=== PATIENT | male | born 1995 | race Two or more races ===

== ENCOUNTER 2020-02-15 13:29 | Emergency (ER) | payer BC, SELFPAY ==
[2020-02-15 14:16] VITALS: BP 178/85; PULSE 103; RESP 16; TEMP 36.7; O2SAT 97; BMI 45.1
--- NOTE | 2020-02-15 14:44 | ED.URI ---
HPI - URI/Sore Throat General Chief Complaint: Upper Respiratory Symptoms Stated Complaint: sore throat Time Seen by Provider: 02/15/20 14:44 Source: patient Mode of arrival: ambulatory Limitations: no limitations History of Present Illness HPI Narrative: 24-year-old male presenting to the ED with complaints of a sore throat for approximately 3 weeks worse today. Reports he was recently treated for bronchitis approximately 3 weeks ago with a Z-Nasir and was still having a sore throat therefore they told him to take antihistamines for congestion although he has not had any relief and today he woke up with a swollen uvula and spots to his tonsils therefore came here for further evaluation and treatment. Reports he was negative for COVID 2 weeks ago and does not want another repeat COVID test at this time. Denies any other symptoms complaints or concerns at this time. Related Data Allergies Allergy/AdvReac Type Severity Reaction Status Date / Time No Known Allergies Allergy Unverified 01/12/20 16:14 Review of Systems Review of Systems: Constitutional : No Fever, No Chills, No fatigue, No Malaise ENT/Mouth : No runny nose Eyes: No Discharge Cardiovascular : No Chest Pain, No SOB Respiratory : No Cough, No Sputum, No Wheezing, No Smoke Exposure, No Dyspnea Gastrointestinal : No Nausea, No Vomiting, No Diarrhea Genitourinary : No irregular bleeding, No Dysuria, No Urinary Frequency, No Hematuria, No Urinary Incontinence, No Urgency, No Flank Pain, Musculoskeletal : No Myalgia Skin : No rash Neuro : No Headache Yes all other systems are reviewed and are negative PMFSH Past Medical History Attestation statement: The following information was validated with the patient. Medical History Asthma Hypertension Migraine Surgical History H/O arthroscopy of left knee Social History Social History Alcohol intake: never Smoking Status: Never smoker Use of substances other than those prescribed or required for medical reasons: No Advance Directives: No Advance Directives Information Provided: No Physical Exam Vital Signs: Vital Signs: Vital Signs Temp Pulse Resp BP Pulse Ox 02/15/20 14:16 98.1 F 103 H 16 178/85 H 97 Body Mass Index 45.1 vital signs have been reviewed as normal and appeared to be correct. Blood pressure normal. Heart rate normal. Respiration rate normal. Temperature normal. Oxygen saturation normal. Appearance: Alert. Oriented X3. No acute distress. Head: Normal external exam. Normocephalic. Atraumatic. No Lopez signs noted. No raccoon eyes noted Eyes: PERRLA. EOMI. Conjunctiva and sclera normal. Eyelids normal. ENT: EAC normal. TM's Normal. Posterior oropharynx with mild erythema. Tonsils noted to be mild be erythematous with exudate noted. Uvula midline Although with mild swelling. Moist mucous membranes. No trismus noted. No drooling noted. No muffled voice noted. Neck: Normal inspection. Neck supple. FROM. No adenopathy. Thyroid Normal. No meningeal signs. No neck mass noted. CVS: Normal heart rate and rhythm. Heart sound normal. No murmurs noted. Pulses normal throughout. Respiratory: No respiratory distress. Painless inspiration. Breath sounds normal. No wheezes/rales/rhonchi noted. Chest nontender. No accessory muscle usage noted or decreased air movement noted. Abdomen: Soft and nontender. Bowel sounds normal in all 4 quadrants. No distention noted. No organomegaly noted. No visible injury noted. Back: No CVA tenderness. Full range of motion noted. Skin: Skin warm and dry. Normal skin color. Normal skin turgor. No rashes/lesions/lacerations noted. Extremities: No lower extremity edema. Extremities exhibit normal range of motion. Extremities nontender. Neuro: Oriented X 3. No motor deficit. No sensory deficit. Reflexes normal. Course Course Course Narrative: 24-year-old male presenting to the ED with complaints of a sore throat for approximately 3 weeks worse today. Reports he was recently treated for bronchitis approximately 3 weeks ago with a Z-Nasir and was still having a sore throat therefore they told him to take antihistamines for congestion although he has not had any relief and today he woke up with a swollen uvula and spots to his tonsils therefore came here for further evaluation and treatment. Reports he was negative for COVID 2 weeks ago and does not want another repeat COVID test at this time. Denies any other symptoms complaints or concerns at this time. - rapid strep and treat for bacterial pharyngitis and instructions to return if any new or worsening symptoms to follow-up with primary care provider. Patient understands agrees with this plan.
== END 2020-02-15 15:33 | disposition home or self-care (01) ==
PROVIDERS: Emergency Provider Emergency Medicine; PCP Nurse Practitioner Family
DX: J02.9 Acute pharyngitis, unspecified (principal)
CPT/HCPCS: 87071; 87880; 99283

== ENCOUNTER → 2020-08-09 13:47 | Outpatient (BNVA) | payer OTHER, SELFPAY | PROVIDERS: Visit Provider Physician Assistant Medical | DX: S63.501A Unspecified sprain of right wrist, initial encounter (principal); X58.XXXA Exposure to other specified factors, initial encounter; M65.4 Radial styloid tenosynovitis [de Quervain] | CPT/HCPCS: 29260; 99202 ==

== ENCOUNTER → 2020-08-16 13:39 | Outpatient (BNVA) | payer OTHER, SELFPAY | PROVIDERS: Visit Provider Physician Assistant Medical | DX: S63.501A Unspecified sprain of right wrist, initial encounter (principal); X58.XXXA Exposure to other specified factors, initial encounter; M65.4 Radial styloid tenosynovitis [de Quervain] | CPT/HCPCS: 29125; 73110; 99214 ==

== ENCOUNTER → 2020-08-24 13:22 | Outpatient (BNVA) | payer OTHER, SELFPAY | PROVIDERS: PCP Nurse Practitioner Family; Visit Provider Physician Assistant Medical | DX: S63.501A Unspecified sprain of right wrist, initial encounter (principal); X58.XXXA Exposure to other specified factors, initial encounter | CPT/HCPCS: 99213 ==

== ENCOUNTER → 2020-08-28 12:54 | Outpatient (BNVA) | payer OTHER, SELFPAY | PROVIDERS: PCP Nurse Practitioner Family; Visit Provider Physician Assistant | DX: S63.501D Unspecified sprain of right wrist, subsequent encounter (principal); X58.XXXD Exposure to other specified factors, subsequent encounter | CPT/HCPCS: 29125; 99214 ==

== ENCOUNTER → 2020-09-07 13:49 | Outpatient (BNVA) | payer OTHER, SELFPAY | PROVIDERS: PCP Nurse Practitioner Family; Visit Provider Physician Assistant Medical | DX: S63.501D Unspecified sprain of right wrist, subsequent encounter (principal); X58.XXXD Exposure to other specified factors, subsequent encounter | CPT/HCPCS: 99213 ==

== ENCOUNTER → 2020-09-28 14:12 | Outpatient (BNVA) | payer OTHER, SELFPAY | PROVIDERS: PCP Nurse Practitioner Family; Visit Provider Physician Assistant Medical | DX: S63.501D Unspecified sprain of right wrist, subsequent encounter (principal); X58.XXXD Exposure to other specified factors, subsequent encounter | CPT/HCPCS: 99213 ==

== ENCOUNTER → 2020-10-03 14:42 | Outpatient (BNVA) | payer OTHER, SELFPAY | PROVIDERS: PCP Nurse Practitioner Family; Visit Provider Physician Assistant | DX: S66.911A Strain of unspecified muscle, fascia and tendon at wrist and hand level, right hand, initial encounter (principal) | CPT/HCPCS: 99202 ==

== ENCOUNTER 2020-10-24 15:00 | Outpatient (RCR) | payer OTHER, SELFPAY | END 2020-11-30 10:01 | disposition other institution (70) | LOC: HO.OT 15:00 | PROVIDERS: PCP Nurse Practitioner Family; Visit Provider Physician Assistant Medical | DX: S69.91XD Unspecified injury of right wrist, hand and finger(s), subsequent encounter (principal) | CPT/HCPCS: 29125; 97033; 97110; 97165; 97760 ==

== ENCOUNTER → 2020-11-14 13:45 | Outpatient (BNVA) | payer OTHER, SELFPAY | PROVIDERS: PCP Nurse Practitioner Family; Visit Provider Physician Assistant | DX: S66.911A Strain of unspecified muscle, fascia and tendon at wrist and hand level, right hand, initial encounter (principal); X58.XXXA Exposure to other specified factors, initial encounter; Y93.9 Activity, unspecified; Y92.9 Unspecified place or not applicable; Y99.8 Other external cause status; J45.909 Unspecified asthma, uncomplicated; I10 Essential (primary) hypertension | CPT/HCPCS: 99212 ==

== ENCOUNTER → 2021-06-03 10:44 | Outpatient (BNVA) | payer OTHER, SELFPAY | PROVIDERS: PCP Nurse Practitioner Family; Visit Provider Physician Assistant Medical | DX: S30.0XXA Contusion of lower back and pelvis, initial encounter (principal); W00.0XXA Fall on same level due to ice and snow, initial encounter | CPT/HCPCS: 99203 ==

== ENCOUNTER → 2021-07-08 14:20 | Outpatient (BNVA) | payer OTHER, SELFPAY | PROVIDERS: PCP Nurse Practitioner Family; Visit Provider Internal Medicine | DX: Z13.89 Encounter for screening for other disorder (principal) ==

== ENCOUNTER 2021-07-08 15:18 | Emergency (ER) | payer OTHER, SELFPAY ==
--- NOTE | ~2021-07-08 | CT_ITS ---
EXAMINATION: CT FACIAL BONES WITHOUT CONTRAST CLINICAL INFORMATION: Left eye pain. COMPARISON: No similar priors. TECHNIQUE: Contiguous axial imaging was performed of the maxillofacial structures without intravenous contrast. Coronal and sagittal reformats were obtained. This CT examination was performed using dose optimization techniques as appropriate, variously including the following: *Automated exposure control *Adjustment of mA and/or kV according to patient size (this includes techniques or standardized protocols for targeted exams where dose is matched to indication/reason for exam; i.e. extremities or head) *Use of iterative reconstruction technique DLP: 532 mGy-cm FINDINGS: There is no acute maxillofacial fracture. The pterygoid plates are intact. The zygomatic arches are intact. The lamina papyracea are intact. The orbital rims are intact. There is a mucous retention cyst in the right maxillary sinus with mild mucosal thickening of the paranasal sinuses elsewhere. No air-fluid levels are seen. There is no deviation of the nasal septum. The ostiomeatal complexes are clear. The ethmoid roofs are symmetric. No maxillary periapical disease is seen. The mastoid air cells and visualized middle ear cavities are well-aerated. The orbits are normal. The TMJs are unremarkable. The imaged portions of the brain demonstrate no acute abnormality. CT/CT facial bones wo con IMPRESSION: No acute intracranial process or discrete facial bone fracture.
[2021-07-08 16:55] VITALS: BP 149/80; PULSE 104; RESP 18; TEMP 36.8; O2SAT 98; BMI 51.6
[2021-07-08] MEDS: Tetracaine HCl/PF 0.5% Oph Sol 4 ML DROPS 3 DROP EYE-BOTH (17:20)
[2021-07-08] MEDS: Fluorescein Sodium STRIP 1 STRIP EYE-LEFT (17:21)
[2021-07-08] MEDS: Fluorescein Sodium STRIP 1 STRIP EYE-RIGHT (17:21)
[2021-07-08] MEDS: oxyCODONE HCl Immed Release 5 MG TABLET PO (17:46)
--- NOTE | 2021-07-08 18:52 | ED_ITS ---
HPI - General Adult General Chief complaint: Eye Problems Stated complaint: blunt trauma to left eye work related Time Seen by Provider: 07/08/21 17:07 Source: patient Mode of arrival: ambulatory Limitations: no limitations History of Present Illness HPI narrative: patient presents to ED for left eye pain. 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 Patient states due to his strength the object pushed back up and hit him in his left eye around 10:00. Patient kept on working but then started having worsening eye pain so came to the ED to be evaluated. Patient was referred from work connection. Patient denies any loss of consciousness or actual frontal or scalp injury. Patient states clearly being hit in left eye. patient denies any loss of consciousness Related Data Home Medications Medication Instructions Recorded Confirmed acetaminophen 500 mg tablet 1,000 mg PO Q4H PRN 10/03/20 amitriptyline 25 mg tablet 50 mg PO BEDTIME 10/03/20 chlorthalidone 25 mg tablet 25 mg PO DAILY 10/03/20 ibuprofen 800 mg tablet 800 mg PO TID PRN 10/03/20 verapamil 180 mg 24 hr 180 mg PO DAILY 10/03/20 capsule,extended release Previous Rx's Medication Instructions Recorded Decadron 6 mg tablet 12 mg PO ONCE #2 tab NS 02/15/20 (dexamethasone) acetaminophen 300 mg-codeine 30 mg 1 tab PO Q8H PRN #10 tab 02/15/20 tablet amoxicillin 875 mg-potassium 1 tab PO BID 10 Days #20 tab 02/15/20 clavulanate 125 mg tablet (Augmentin) erythromycin 5 mg/gram (0.5 %) eye 0.5 inch OPHTHALMIC (EYE) QID 7 07/08/21 ointment Days #3.5 g oxycodone-acetaminophen 5 mg-325 1 tab PO TID PRN 3 Days #9 tab 07/08/21 mg tablet (Percocet) Allergies Allergy/AdvReac Type Severity Reaction Status Date / Time No Known Allergies Allergy Unverified 10/03/20 14:51 Review of Systems Review of Systems: left eye pain Yes all other systems are reviewed and are negative PMFSH Past Medical History Medical History Asthma Hypertension Migraine Surgical History H/O arthroscopy of left knee Social History Social History Alcohol intake: never Patient Tobacco Use Status: Never used Tobacco Advance Directives: No Advance Directives Information Provided: No Current occupational status: employed 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 Physical Exam ED Vital Signs: Vital Signs - 24 hr 07/08/21 16:55 Temperature 98.3 F Pulse Rate 104 H Respiratory Rate 18 Blood Pressure 149/80 H Pulse Oximetry 98 BMI result Body Mass Index 51.6 Const General: cooperative, healthy appearing, comfortable, no acute distress, well developed, alert, awake and Physically active Orientation/consciousness: oriented to time and patient oriented x3 HENMT Head: Yes normal to inspection, Yes No palpable skull fracture present, Yes normocephalic, Yes atraumatic, No abrasion, No Acrocyanosis present, No Lopez's sign, No contusion, No cranial bruits, No hematoma, No laceration, No occipital foramen tenderness, No palpable skull fracture, No raccoon eyes, No scalp lesion, No scalp tenderness, No Temporal artery tenderness present and No periorbital ecchymosis Head images: 1. tenderness on palpation. Negative for ecchymosis or crepitus. Rest of HEENT normal Ears: hearing grossly normal bilaterally, external ears normal, TM's normal bilaterally, EAC's normal, mastoids normal and no periauricular adenopathy Eyes Other: Left eye: positive for conjunctival/scleral erythema. Positive for slight photophobia. Negative for any foreign body. Physical exam indicates corneal abrasion, and mild 3* oclock and 6 o'clock position conjunctival uptake. Visual acuity 20/40. Negative for subconjuctival hemorrhage or hyphema. right eye; normal. Negative for corneal abrasion. Visual acuity 20/20 General: appearance normal, both eyes and all related structures Neck Neck: Yes normal visual inspection, Yes full ROM, Yes no lymphadenopathy, Yes no meningeal signs, Yes trachea midline, Yes supple, No anterior neck swelling and No tender Chest Chest palpation & inspection: normal inspection of the chest and normal palpation of entire chest wall Resp Effort & Inspection: normal respiratory effort and able to speak in complete sentences Auscultation: clear to auscultation bilaterally Cardio Jugular venous distension: no JVD Heart sounds: S1 normal heart sound present and S2 normal heart sound present GI Inspection: Yes normal to inspection and No abdominal wall ecchymosis Palpation (GI): Soft to palpation, not firm, nontender, no guarding and not rigid General: No CVA tenderness and Yes no CVA tenderness Back/Spine/Pelvis Back: no CVA tenderness, No CVA tenderness and No back tenderness Skin General skin exam: no rashes or lesions noted and elasticity normal Neuro General: oriented to time, patient oriented x3, gait normal, tone normal and no meningeal signs Cranial nerves: Yes CN's II-XII intact bilaterally Extrem General: Yes normal to inspection and Yes full ROM Psych Appearance: grossly normal, well kempt and not disheveled Course Course Course Narrative: tetracaine and fluorescein dye used for eye exam Reevaluation(s) Reevaluation #1: eye exam shows corneal abrasion due to slight orbital bone tenderness and mild conjunctival uptake will send for CT scan make sure there is no fracture or globe rupture. Patient states he feels better after receiving Percocet and tetracaine in the eye. Patient not talk on the phone being pleasant and no longer have photophobia. Discharge papers prepared and cased signed out to SHAR Rashid. Patient states up-to-date with tetanus Time: 19:04 Medical Decision Making MDM Narrative Medical decision making narrative: Corneal abrasion Discharge Plan Discharge Clinical Impression: Corneal abrasion Patient Disposition: Still a Patient Instructions: Corneal Abrasion (ED) Additional Instructions: return to the ED immediately for any worsening eye pain, watery discharge, blood in the eye, change in vision, loss of vision, headache, dizziness, nausea, vomiting, or any other concerning symptoms. Prescriptions: New erythromycin 5 mg/gram (0.5 %) ointment 0.5 inch ophthalmic (eye) QID 7 Days Qty: 3.5 0RF Rx Instructions: left eye oxycodone-acetaminophen [Percocet] 5-325 mg tablet 1 tab PO TID PRN (Reason: pain) 3 Days Qty: 9 0RF Rx Instructions: side effect is drowsiness. Do not take at work or while driving. No Action amoxicillin-pot clavulanate [Augmentin] 875-125 mg tablet 1 tab PO BID 10 Days Qty: 20 0RF dexamethasone [Decadron] 6 mg tablet 12 mg PO ONCE Qty: 2 0RF acetaminophen-codeine 300-30 mg tablet 1 tab PO Q8H PRN (Reason: pain) Qty: 10 0RF verapamil 180 mg capsule,ext rel. pellets 24 hr 180 mg PO DAILY 0RF amitriptyline 25 mg tablet 50 mg PO BEDTIME 0RF chlorthalidone 25 mg tablet 25 mg PO DAILY 0RF acetaminophen 500 mg tablet 1,000 mg PO Q4H PRN (Reason: pain) 0RF ibuprofen 800 mg tablet 800 mg PO TID PRN (Reason: moderate pain) 0RF Referrals: Ibrahima Thomas [Physician] - 2 days ( Left corneal abrasion) Print Language: Nigerien
== END 2021-07-08 19:30 | disposition home or self-care (01) ==
PROVIDERS: Emergency Provider Emergency Medicine
DX: S05.02XA Injury of conjunctiva and corneal abrasion without foreign body, left eye, initial encounter (principal); W22.8XXA Striking against or struck by other objects, initial encounter; Y93.89 Activity, other specified; Y92.89 Other specified places as the place of occurrence of the external cause; Y99.0 Civilian activity done for income or pay
CPT/HCPCS: 70486; 99284

== ENCOUNTER → 2021-07-10 09:11 | Outpatient (BNVA) | payer OTHER, SELFPAY | PROVIDERS: Visit Provider Physician Assistant Medical | DX: S05.02XA Injury of conjunctiva and corneal abrasion without foreign body, left eye, initial encounter (principal); S06.9X0A Unspecified intracranial injury without loss of consciousness, initial encounter; W22.8XXA Striking against or struck by other objects, initial encounter; G43.909 Migraine, unspecified, not intractable, without status migrainosus | CPT/HCPCS: 99203 ==

== ENCOUNTER → 2021-07-12 14:11 | Outpatient (BNVA) | payer OTHER, SELFPAY | PROVIDERS: Visit Provider Physician Assistant | DX: S05.02XA Injury of conjunctiva and corneal abrasion without foreign body, left eye, initial encounter (principal); S06.9X0A Unspecified intracranial injury without loss of consciousness, initial encounter; W22.8XXA Striking against or struck by other objects, initial encounter | CPT/HCPCS: 99213 ==

== ENCOUNTER → 2022-03-04 09:26 | Outpatient (BNVA) | payer OTHER, SELFPAY | PROVIDERS: Visit Provider Internal Medicine | DX: S66.911A Strain of unspecified muscle, fascia and tendon at wrist and hand level, right hand, initial encounter (principal); X50.0XXA Overexertion from strenuous movement or load, initial encounter | CPT/HCPCS: 73110; 99203 ==

== ENCOUNTER → 2022-03-11 08:47 | Outpatient (BNVA) | payer OTHER, SELFPAY | PROVIDERS: Visit Provider Physician Assistant Medical | DX: S66.911A Strain of unspecified muscle, fascia and tendon at wrist and hand level, right hand, initial encounter (principal); X50.0XXA Overexertion from strenuous movement or load, initial encounter; M65.4 Radial styloid tenosynovitis [de Quervain] | CPT/HCPCS: 99213 ==

== ENCOUNTER → 2022-07-23 09:57 | Outpatient (BNVA) | payer OTHER, SELFPAY | PROVIDERS: Visit Provider Physician Assistant Medical | DX: S67.196A Crushing injury of right little finger, initial encounter (principal); W23.1XXA Caught, crushed, jammed, or pinched between stationary objects, initial encounter | CPT/HCPCS: 73130; 99203 ==

== ENCOUNTER → 2022-07-28 13:15 | Outpatient (BNVA) | payer OTHER, SELFPAY | PROVIDERS: Visit Provider Physician Assistant Medical | DX: S67.196D Crushing injury of right little finger, subsequent encounter (principal); W23.1XXD Caught, crushed, jammed, or pinched between stationary objects, subsequent encounter | CPT/HCPCS: 29130; 99213 ==

== ENCOUNTER → 2022-08-04 13:29 | Outpatient (BNVA) | payer OTHER, SELFPAY | PROVIDERS: Visit Provider Physician Assistant Medical | DX: S67.196D Crushing injury of right little finger, subsequent encounter (principal); W23.1XXD Caught, crushed, jammed, or pinched between stationary objects, subsequent encounter | CPT/HCPCS: 99213 ==

== ENCOUNTER → 2022-08-19 14:27 | Outpatient (BNVA) | payer OTHER, SELFPAY | PROVIDERS: Visit Provider Physician Assistant Medical | DX: S67.197D Crushing injury of left little finger, subsequent encounter (principal); W23.1XXD Caught, crushed, jammed, or pinched between stationary objects, subsequent encounter | CPT/HCPCS: 99213 ==

== ENCOUNTER → 2022-11-11 14:50 | Outpatient (BNVA) | payer OTHER, SELFPAY | PROVIDERS: Visit Provider Internal Medicine | DX: S60.372A Other superficial bite of left thumb, initial encounter (principal); W53.01XA Bitten by mouse, initial encounter; Z23 Encounter for immunization | CPT/HCPCS: 90675; 90715; 99204 ==

== ENCOUNTER → 2022-11-14 14:02 | Outpatient (BNVA) | payer OTHER, SELFPAY | PROVIDERS: Visit Provider Internal Medicine | DX: S61.051A Open bite of right thumb without damage to nail, initial encounter (principal); W53.01XA Bitten by mouse, initial encounter; Z23 Encounter for immunization | CPT/HCPCS: 90675; 99213 ==

== ENCOUNTER → 2022-11-18 14:04 | Outpatient (BNVA) | payer OTHER, SELFPAY | DX: S60.372A Other superficial bite of left thumb, initial encounter (principal); W53.01XA Bitten by mouse, initial encounter; Z20.3 Contact with and (suspected) exposure to rabies; Z23 Encounter for immunization | CPT/HCPCS: 90675; 99211 ==

== ENCOUNTER → 2022-11-25 14:42 | Outpatient (BNVA) | payer OTHER, SELFPAY | DX: S60.37 Other superficial bite of thumb (principal); W53.01XD Bitten by mouse, subsequent encounter; Z20.3 Contact with and (suspected) exposure to rabies | CPT/HCPCS: 90675; 99211 ==

== ENCOUNTER → 2024-06-16 11:21 | Outpatient (BNVA) | payer OTHER, SELFPAY | PROVIDERS: Visit Provider Physician Assistant Medical | DX: T26.92XA Corrosion of left eye and adnexa, part unspecified, initial encounter (principal); T50.901A Poisoning by unspecified drugs, medicaments and biological substances, accidental (unintentional), initial encounter | CPT/HCPCS: 92002; 99203 ==

== ENCOUNTER → 2024-11-03 08:43 | Outpatient (BNVA) | payer OTHER, SELFPAY | PROVIDERS: Visit Provider Physician Assistant Medical | DX: S83.411A Sprain of medial collateral ligament of right knee, initial encounter (principal); S80.01XA Contusion of right knee, initial encounter; X50.1XXA Overexertion from prolonged static or awkward postures, initial encounter | CPT/HCPCS: 73564; 73590; 99204 ==

== ENCOUNTER → 2024-11-07 08:04 | Outpatient (BNVA) | payer OTHER, SELFPAY | PROVIDERS: Visit Provider Physician Assistant Medical | DX: M23.91 Unspecified internal derangement of right knee (principal); S80.01XA Contusion of right knee, initial encounter; X50.1XXA Overexertion from prolonged static or awkward postures, initial encounter; Z02.79 Encounter for issue of other medical certificate | CPT/HCPCS: 99213 ==

== ENCOUNTER → 2025-02-15 08:05 | Outpatient (BNVA) | payer OTHER, SELFPAY | PROVIDERS: Visit Provider Emergency Medicine | DX: M23.91 Unspecified internal derangement of right knee (principal) | CPT/HCPCS: 99213 ==

== ENCOUNTER 2025-03-02 13:27 | Outpatient (REF) | payer OTHER, SELFPAY ==
--- NOTE | ~2025-03-02 | MR_ITS ---
EXAMINATION: MR KNEE WITHOUT CONTRAST, RIGHT CLINICAL INFORMATION: Hyperextension injury, pain medial joint line. Patient reports no prior right knee surgery. COMPARISON: X-ray 11/03/2024 TECHNIQUE: MRI of the knee without contrast was performed using routine sequences on a high-field scanner. FINDINGS: MENISCI: Medial Meniscus: Cystic focus anterior to/abutting the anterior root and anterior horn, measuring 1.5 cm transverse . Differential consideration include para meniscal cyst,, with possible underlying occult meniscal tear. Differential consideration include ganglion cyst.. No meniscal tear is otherwise seen. Lateral Meniscus: Intact LIGAMENTS: Cruciate: ACL is intact. Mild T2 signal in the posterior fibers of the ACL, could reflect physiological variation versus mild sprain. Intact PCL. Collateral: Intact EXTENSOR MECHANISM: Intact ARTICULAR CARTILAGE/BONE: Patellofemoral Compartment: No significant chondral loss Medial Compartment: No significant chondral loss Lateral Compartment: No significant chondral loss. No fracture. No aggressive marrow replacing lesion. JOINT FLUID AND BURSAE: Small fluid in the anterior joint space. No significant Morton's cyst. Popliteus muscle and tendon are intact. . MR/MR knee RT wo con IMPRESSION: * 1.5 cm cystic focus anterior to/abutting the medial meniscal anterior root/anterior horn. This of uncertain etiology. Differential consideration include para -meniscal cyst, possible underlying occult meniscal tear, ganglion cyst. Follow-up imaging as clinically indicated.. * Mild T2 signal in the posterior fibers ACL could reflect physiological variation versus mild sprain. No ACL discontinuity is otherwise seen. * Additional findings as above. Electronically signed by: Christiano Velasquez MD 03/03/2025 08:04 AM SEAN
--- OUTSIDE RECORDS SUMMARY | 2025-03-02 16:24 | XMS_ITS | Continuity of Care Document ---
Author Organization [place] - [facility], [facility] Address [address] [place] [address] Care Team Providers Care Trim Technician Name Role Phone MARGY SALCEDO Primary Care Provider Assessment Encounter Date Assessment Date Assessment LastModified by Organization Details LastModified Time 01/02/2025 01/02/2025 29 year old male , with a history of obesity and adenotonsillar hypertrophy, presents for reevaluation of sleep-disordered breathing. HST performed 08/01/24 revealed an AHI of 35.7 with an oxygen desaturation catherine of 83%, consistent with severe obstructive sleep apnea. Tonsils are 3+ bilaterally with a Mallampati Class IV. Previous nasal endoscopy was also notable for a large adenoid pad. We discussed that these findings are likely playing a significant role in his symptoms, however weight and neck circumference can also contribute. Patient is currently on Wegovy for weight reduction, which he was encouraged to continue along with a balanced diet and exercise. Recommend follow up with Dr. Glez as he would ultimately benefit from an adenotonsillectom y. I did clarify that surgery would not cure his sleep apnea and he may still require CPAP therapy, though he might better tolerate the machine post-procedure. Patient understands and agrees with the plan. All questions were answered. [email or web address] Not available 01/02/2025 20:28:49 Plan of Treatment Reminders Order Date Submit Date Provider Last Modified By Organization Details Last Modified Time Details Appointments SURGERY 60 2024 10:15A M ORI GLEZ MD Not available Not available Not available Lab None recorded . Referral None recorded . Procedures None recorded . Surgeries None recorded . Imaging None recorded . Medication Orders None recorded . Patient TargetsNo targets recorded. Patient InstructionsNo instructions recorded. Reason for Referral None Reported. Problems Name Problem SNOMED Code Status Onset Date Resolution Date Notes Provider Name and Address Organization Details Recorded Time Bleeding from nose 971577411 Active 2016 Epistaxis; Note: Date Diagnosed: 05/15/2016 1:45 PM (R04.0) Not Available [facility] 4 02:21:58 Simple obesity 495569610 Active 2018 Other obesity due to excess calories; Note: Date Diagnosed: 04/15/2019 4:03 PM (E66.09) Not Available [facility] 4 02:21:46 Hypertrop hy of tonsils 21744679 Active 2018 Hypertroph y of tonsils; Note: Date Diagnosed: 04/15/2019 4:03 PM (J35.1) Not Available [facility] 4 02:21:54 Snoring 30507848 Active 2018 Snoring; Note: Date Diagnosed: 04/15/2019 4:03 PM (R06.83) Not Available [facility] 4 02:21:46 Obstructi ve sleep apnea syndrome 54039644 Active 2024 SHAR MAY [address] [facility],[place] [address], [address] , [facility] - [facility] 5 14:46:41 Hypertrop hy of tonsils AND adenoids 69744406 [facility] 2024 SHAR MAY [address] [place] [address],[place] [address], [place], [address] , [place] - [facility] 5 20:27:16 Morbid obesity 711876224 Active 2024 SHAR MAY [address] [facility],[place] [address], [address] , [place] - [facility] 5 20:27:41 Seasonal allergic rhinitis 898792112 Active 2024 SHAR MAY [address] [facility],[place] [address], [place], [address] , [place] - [facility] 20:27:50 Problem Notes None recorded. Medical Equipment None Reported. Allergies No known drug allergies Medications Name Sig Start Date Stop Date Status Note LastModified by Organization Details LastModified Time verapamil ER (SR) 120 mg tablet,ex tended release 01/02 completed Medicati on ID: [id number] D uration Value: 30 Brand Name: verapami l Send Method: E-Prescr ibed Sub s Allowed: subs OK Speci al Instruct ion: TAKE 2 TABLET BY MOUTH EVERY MORNING FOR 30 DAYS Med icationG enericNa me: verapami l Not Available Not Available Not Available losartan 50 mg tablet TAKE 1 TABLET BY MOUTH DAILY active Not Available Not Available No t Available chlorthal idone 25 mg tablet 01/02 completed Medicati on ID: [id number] B rand Name: chlortha lidone S end Method: E-Prescr ibed Sub s Allowed: subs OK Medic ationGen ericName : chlortha lidone Not Available Not Available Not Available ketorolac 10 mg tablet 01/02 completed Medicati on ID: [id number] B rand Name: ketorola c Send Method: E-Prescr ibed Sub s Allowed: subs OK Medic ationGen ericName : ketorola c Not Available Not Available Not Available verapamil ER 180 mg 24 hr capsule,e xtended release 01/02 completed Medicati on ID: [id number] B rand Name: verapami l Send Method: E-Prescr ibed Sub s Allowed: subs OK Medic ationGen ericName : verapami l Not Available Not Available Not Available amitripty line 25 mg tablet 01/02 completed Medicati on ID: [id number] B rand Name: amitript yline Se nd Method: E-Prescr ibed Sub s Allowed: subs OK Medic ationGen ericName : amitript yline Not Available Not Available Not Available albuterol sulfate HFA 90 mcg/actua tion aerosol inhaler active Medicati on ID: [id number] B rand Name: albutero l sulfate Send Method: E-Prescr ibed Sub s Allowed: subs OK Medic ationGen ericName : albutero l sulfate Not Available Not Available Not Available ipratropi um bromide 21 mcg (0.03 %) nasal spray USE 1 SPRAY IN EACH NOSTRIL TWICE DAILY NEEDED FOR NASAL CONGESTI ON active Not Available Not Available No t Available loratadin e 10 mg tablet TAKE 1 TABLET BY MOUTH DAILY NEEDED FOR ITCHING active Not Available Not Available No t Available naproxen 500 mg tablet 01/02 completed Medicati on ID: [id number] D uration Value: 30 Brand Name: naproxen Send Method: E-Prescr ibed Sub s Allowed: subs OK Speci al Instruct ion: TAKE 1 TABLET BY MOUTH TWICE A DAY Medi cationGe nericNam e: naproxen Not Available Not Available Not Available verapamil ER 240 mg 24 hr capsule,e xtended release TAKE 1 CAPSULE BY MOUTH DAILY active Not Available Not Available No t Available Alcohol Prep Pads USE TO CLEAN INJECTIO N SITE 01/02 completed Not Available Not Available Not Available Wegovy 0.25 mg/0.5 mL subcutane ous pen injector INJECT 0.25MG UNDER THE SKIN ONCE WEEKLY BRING TO OFFICE FOR INSTRUCT IONS 01/02 completed Not Available Not Available Not Available Wegovy 0.5 mg/0.5 mL subcutane ous pen injector INJECT 0.5MG UNDER THE SKIN ONCE WEEKLY 01/31 completed Not Available Not Available Not Available Vitals None Recorded Social History Question Answer Notes LastModified by Organizat ion Details LastModified Time Tobacco Smoking Status Never Smoker Dang schreiber [place] - [facility] 01/02/2025 10:40:42 How Many Years Have You Consumed Alcohol? 10 [email or web address] Information not available 01/02/2025 What Type Of Teller Supervisor Do You Use? None [email or web address] Information not available 01/02/2025 How Many Alcoholic Drinks Do You Consume Per Day On Average? 0 [email or web address] Information not available 01/02/2025 Do You Have Any Pets? No [email or web address] Information not available 01/02/2025 Are You Passively Exposed To Smoke? No [email or web address] Information not available 01/02/2025 Are There Any Smokers In Your House? No [email or web address] Information not available 01/02/2025 Sex: Unknown Functional Status Question Answer Note LastModified by Organization Details LastModified Time How many times per week do you consume alcohol? 1-2 times per week [email or web address] Information not available 01/31/2025 Do you use any illicit or recreational drugs? No [email or web address] Information not available 01/02/2025 Do you or have you ever used any other forms of tobacco or nicotine? No [email or web address] Information not available 01/02/2025 What is your level of alcohol consumption? Occasional [email or web address] Information not available 01/02/2025 What type of noise exposure are you exposed to? noExposureToExcessiveNoise [email or web address] Infor mation not available 01/02/2025 Mental Status None recorded. Family History Nothing Reported. Medical History Condition Response Allergies/Hayfever Y Heart Problems N Anxiety N Tonsil Infections N Emphysema N Migraines Y Thyroid Problems N Glaucoma N Depression N COPD N Developmental Delay N Nasal or Sinus Problems N Anemia N Immune System Disorder N Anesthesia Complications N Heart Attack (PR) N Other Skin Condition N Diabetes N Rhinitis N Bleeding Disorder N Food Allergy N Arthritis Y Hearing Loss N Hyperlipidemia N Cancer N Stroke N Dementia N Nasal polyps N Asthma Y High Cholesterol N Sleep Disorder Y GERD/Reflux N Liver Disease N Headaches Y Fibromyalgia N Hypertension Y Speech Delay N Kidney Disease N Past Encounters Encounter ID Performer Location Encounter Start Date Encounter Closed Date Diagnosis/Indication Diagnosis SNOMED-CT Code Diagnosis ICD10 Code Diagnosis IMO Codes Diagnosis Note [id number] SHAR MAY [facility] [address] [address] 01/02/2025 09:58:42 01/02/2025 11:19:22 Obstructive sleep apnea syndrome 91551344 G47.33 77410694 Hypertroph y of tonsils AND adenoids 36808502 J35.3 890756 Morbid obesity 407794948 E66.01 83168 Seasonal a llergic rhinitis 654192178 J30.2 8836985 Health Concerns Section Related Observation LastModified by Organization Detai ls LastModified Time None Recorded Concern Status LastModified by Organization Details LastModified Time None Recorded Payers Encounter Date Sequence Insurance Name Policy Number Policy Lam Covered Member ID Lam Member ID Guarantor Name 01/02/2025 1 [facility] [place] [id number] Ilya Recinos [id number] Ilya Recinos Notes Date Note Type Note Provider Name and Address Organization Details Recorded Time 01/02/2025 text/html ROS as noted in the HPI 29 year old male, with a history of obesity and adenotonsillar hypertrophy, presents for reevaluation of sleep-disordered breathing. Patient was previously seen by Dr. Glez for the same concern, but lost to follow up. He had a home sleep study done in July which showed severe sleep apnea. Patient was recommended a CPAP machine, however he is unable to tolerate it despite trying different mask options and pressure settings. He is also unable to sleep supine due to the feeling of choking. Patient states he has gained 50-60 since his last visit here. He was recently started on Wegovy for weight reduction. History of seasonal allergies well-controlled with loratidine and a nasal spray. Works at a [employer] facility. BENEDICT LALA MD [address] [place] [address], [phone], [facility] - [facility] 01/02/2025 20:59:18
--- OUTSIDE RECORDS SUMMARY | 2025-03-02 16:24 | XMS_ITS | Data Portability ---
Author Organization [place] - [facility], Allergy Address [address] [place] [phone] Care Team Providers Care Assembler Camper Name Role Phone MARGY SALCEDO Primary Care [...] were answered. [email or web address] Not available 01/02/2025 20:28:49 01/31/2025 01/31/2025 Iyla Recinos veras s severe sleep apnea confirmed by a home sleep study conducted approximately six months ago. He has a history of difficulty tolerating CPAP therapy due to choking episodes. Examination reveals large tonsils, which may contribute to his condition. Tonsillectomy and adenoidectomy are recommended to improve airway space and potentially enhance CPAP tolerance. The procedure will be performed in the operating room under general anesthesia. Postoperative care will include Tylenol and Motrin for pain management, soft foods for two weeks, and low activity levels during recovery. Risks of the surgery, including bleeding, were discussed, and the patient was advised to contact the clinic if bleeding occurs. Due to his weight and severity of sleep apnea, overnight hospital observation may be required. A repeat sleep study will be conducted two months post-surgery to evaluate improvement. The patient was provided with contact information for the cardiovascular surgical tech to schedule the procedure and advised to discuss his work schedule to accommodate recovery time. [email or web address] Not available 01/31/2025 15:16:59 Plan of Treatment Reminders Order Date Submit Date Provider Last Modified By Organization Details Last Modified Time Details Appointments SURGERY 60 2024 10:15A M ORI GLEZ MD Not available Not available Not available Lab None recorded. Referral None recorded. Procedures None recorded. Surgeries tonsillec cassia & adenoidec cassia (SURG) 2024 025 Not available 01/31/2025 15:27:51 Imaging None recorded. Medication Orders None recorded. Patient TargetsNo targets recorded. Patient Instructions Encounter Date Encounter Id Patient Instructions Last Modified By Organization Details Last Modified Time 01/31/2025 [id number] Contact the cardiovascular surgical tech to schedule the procedure. Plan for two weeks of recovery with low activity levels and soft foods. Avoid lifting heavy objects during the recovery period. Monitor for signs of bleeding and contact the clinic if bleeding occurs. Schedule a repeat sleep study two months post-surgery. [email or web address] Not available 01/31/2025 15:16:59 Please note: Parts of this encounter note have been generated by AI based on audio conversation. Patient consent was required prior to utilizing this technology. Content review was required prior to finalizing the note. [email or web address] Not available 01/31/2025 15:16:59 Reason for Referral None Reported. Problems Name Problem SNOMED Code Status Onset Date Resolution Date Notes Provider Name and Address Organization Details Recorded Time Bleeding from nose 575935425 Active 2016 Epistaxis; Note: Date Diagnosed: 05/15/2016 1:45 PM (R04.0) Not Available [facility] 4 02:21:58 Simple obesity 470174311 Active 2018 Other obesity due to excess calories; Note: Date Diagnosed: 04/15/2019 4:03 PM (E66.09) Not Available [facility] 4 02:21:46 Hypertrop hy of tonsils 99692611 Active 2018 Hypertroph y of tonsils; Note: Date Diagnosed: 04/15/2019 4:03 PM (J35.1) Not Available [facility] 4 02:21:54 Snoring 22954284 Active 2018 Snoring; Note: Date Diagnosed: 04/15/2019 4:03 PM (R06.83) Not Available [facility] 4 02:21:46 Obstructi ve sleep apnea syndrome 42873517 Active 2024 SHAR MAY [address], [place], [address] , [place] - [facility] 5 14:46:41 Hypertrop hy of tonsils AND adenoids 46118808 Active 2024 SHAR MAY [address], [place], [address] , [place] [facility] 20:27:16 Morbid obesity 451731313 Active 2024 SHAR MAY [address], [place], [address] , [place] - [facility] 5 20:27:41 Seasonal allergic rhinitis 339862429 Active 2024 SHAR MAY [address], [place], [address] , [facility] - [facility] 5 20:27:50 Problem Notes None recorded. Medical Equipment None Reported. Allergies No known drug allergies Medications Name Sig Start Date Stop Date Status Note LastModified by Organization Details LastModified Time verapamil ER (SR) 120 mg tablet,ex tended release 01/02 completed Medicati on ID: [id number] D uration Value: 30 Brand Name: verapami l Send Method: E-Prescr ibed Sub s Allowed: subs OK Speci al Instruct ion: TAKE 2 TABLET BY MOUTH EVERY MORNING FOR 30 DAYS [facility] [place] [place]: frankapami l Not Available Not Available Not Available losartan 50 mg tablet TAKE 1 TABLET BY MOUTH DAILY active Not Available Not Available No t Available chlorthal idone 25 mg tablet 01/02 completed Medicati on ID: [id number] B rand Name: chlortha lidone S end Method: E-Prescr ibed Sub s Allowed: subs OK Medic ationGen ericName : chlortha lidone Not Available Not Available Not Available ketorolac 10 mg tablet 01/02 completed Medicati on ID: [id number] B rand Name: ketorola c Send Method: E-Prescr ibed Sub s Allowed: subs OK Medic ationGen ericName : ketorola c Not Available Not Available Not Available verapamil ER 180 mg 24 hr capsule,e xtended release 01/02 completed Medicati on ID: [id number] B rand Name: verapami l Send Method: E-Prescr ibed Sub s Allowed: subs OK Medic ationGen ericName : verapami l Not Available Not Available Not Available amitripty line 25 mg tablet 01/02 completed Medicati on ID: [id number] B rand Name: amitript yline Se nd Method: E-Prescr ibed Sub s Allowed: subs OK Medic ationGen ericName : amitript yline Not Available Not Available Not Available albuterol sulfate HFA 90 mcg/actua tion aerosol inhaler active Medicati on ID: [id number] B rand Name: albutero l sulfate Send [...] mg tablet 01/02 completed Medicati on ID: [id number] D uration Value: 30 Brand Name: naproxen [...] Not Available Not Available Not Available Vitals Date Recorded Body height Body mass index (BMI) Body weight Provider Name and Address Organization Details Last Updated DateTime 01/31/2025 177.8 cm 48.4 kg/m2 121179.63 g MARIO ESTEVAN [place] - [facility] 01/31/2025 14:52:04 Social History Question Answer Notes LastModified by Organizat ion Details LastModified Time Tobacco Smoking Status Never Smoker Dang schreiber [place] - [facility] 01/02/2025 10:40:42 How Many Years Have You Consumed Alcohol? 10 [email or web address] Information not available 01/02/2025 What Type Of Environmental Compliance Manager Do You Use? None [email or web address] Information not available 01/02/2025 How Many Alcoholic Drinks Do You Consume Per Day On Average? 0 [email or web address] Information not available 01/02/2025 Do You Have Any Pets? No [email or web address] Information not available 01/02/2025 Are You Passively Exposed To Smoke? No [email or web address] Information not available 01/02/2025 Are There Any Smokers In Your House? No [email or web address] Information not available 01/02/2025 Sex: Unknown Functional Status Question Answer Note LastModified by Organization Details LastModified Time How many times per week do you consume alcohol? 1-2 times per week [email or web address] Information not available 01/31/2025 Do you use any illicit or recreational drugs? No [email or web address] Information not available 01/02/2025 Do you or have you ever used any other forms of tobacco or nicotine? No [email or web address] Information not available 01/02/2025 What is your level of alcohol consumption? Occasional [email or web address] Information not available 01/02/2025 What type of noise exposure are you exposed to? noExposureToExcessiveNoise [email or web address] Infor mation not available 01/02/2025 Mental Status None recorded. Family History Nothing Reported. Medical History Condition Response Allergies/Hayfever Y Heart Problems N Anxiety N Tonsil Infections N Emphysema N Migraines Y Thyroid Problems N Glaucoma N Depression N COPD N Developmental Delay N Nasal or Sinus Problems N Anemia N Immune System Disorder N Anesthesia Complications N Heart Attack ([place]) N Other Skin Condition N Diabetes N [...] ICD10 Code Diagnosis IMO Codes Diagnosis Note [id number] SHAR MAY [facility] [address] [address] 01/02/2025 09:58:42 01/02/2025 11:19:22 Obstructive sleep apnea syndrome 27831025 G47.33 32469482 Hypertroph y of tonsils AND adenoids 75715894 J35.3 377579 Morbid obesity 025907077 E66.01 44564 Seasonal a llergic rhinitis 579478880 J30.2 [id number] ORI GLEZ MD [facility] [address] [address] 01/31/2025 13:57:16 01/31/2025 15:26:36 Obstructive sleep apnea syndrome 93072210 G47.33 66503034 Morbid obesity 391029444 E66.01 19618 Health Concerns Section Related Observation LastModified by Organization Detai ls LastModified Time None Recorded Concern Status LastModified by Organization Details LastModified Time None Recorded Advance Directives Directive None Recorded Payers Insurance Date Sequence Insurance Name Policy Number Policy Lam Covered Member ID Lam Member ID Guarantor Name 01/28/2025 1 [facility] [facility] [place] [id number] Ilya Recinos [id number] Ilya Recinos Notes Date Note Type [...] and a nasal spray. Works at a [employer]. BENEDICT LALA MD [address] [place] [address], [phone], [place] - [facility] 01/02/2025 20:59:18 01/31/2025 text/html KAYLA 08/01/24 home PSG [facility] BMI 50 AHI of 35.7 CPAP trial - intolerant PV 01/02/25 [facility] - rec T&A Ilya Recinos is a 29-year-old male who presents for evaluation of severe sleep apnea. He reports a history of difficulty tolerating CPAP therapy despite trying multiple masks and settings, as he frequently woke up choking. He underwent a home sleep study approximately six months ago in July through the [facility] system, which confirmed severe sleep apnea. He has a history of large tonsils, which were noted during a prior sleep study conducted in 2018 or 2019 when he was at a lower weight. He has been informed that tonsil removal may improve his condition. He also reports a history of migraines, which were exacerbated by the use of Wegovy, leading him to discontinue the medication. He has been walking approximately 15,000 steps daily and has lost approximately 10 pounds over the past month. He denies diabetes or prediabetes and states that his blood work is checked every six months with normal results. 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 He also reports frequent choking on saliva, which he attributes to his large tonsils. ORI GLEZ MD [address] [place] [address], [phone], [facility] - [facility] 01/31/2025 15:17:58
--- OUTSIDE RECORDS SUMMARY | 2025-03-02 16:24 | XMS_ITS | Continuity of Care Document ---
Author Organization [place] - [facility], [facility] Address [address] [place] [address] Care Team Providers Care Drain Cleaner Name Role Phone MARGY SALCEDO Primary Care Provider [phone] Assessment Encounter Date Assessment Date Assessment LastModified by Organization Details LastModified Time 01/31/2025 01/31/2025 Ilya Recinos has severe sleep apnea confirmed by a home [...] was provided with contact information for the yard coordinator to schedule the procedure and advised to discuss his work schedule to accommodate recovery time. [email or web address] Not available 01/31/2025 15:16:59 Plan of Treatment Reminders Order Date Submit Date Provider Last Modified By Organization Details Last Modified Time Details Appointments SURGERY 60 2024 10:15A M ORI LMA MD Not available Not available Not available Lab None recorded. Referral None recorded. Procedures None recorded. Surgeries tonsillec cassia & adenoidec cassia (SURG) 2024 025 [email or web address] Not available 01/31/2025 15:27:51 Imaging None recorded. Medication Orders None recorded. Patient TargetsNo targets recorded. Patient Instructions Encounter Date Encounter Id Patient Instructions Last Modified By Organization Details Last Modified Time 01/31/2025 [id number] Contact the yard coordinator to schedule the procedure. Plan for two [...] Organization Details Recorded Time Bleeding from nose 528207766 Active 2016 Epistaxis; Note: Date Diagnosed: 05/15/2016 1:45 PM (R04.0) Not Available [facility] 4 02:21:58 Simple obesity 099129497 Active 2018 Other obesity due to excess calories; Note: Date Diagnosed: 04/15/2019 4:03 PM (E66.09) Not Available [facility] 4 02:21:46 Hypertrop hy of tonsils 93847398 Active 2018 Hypertroph y of tonsils; Note: Date Diagnosed: 04/15/2019 4:03 PM (J35.1) Not Available [facility] 4 02:21:54 Snoring 15946314 Active 2018 Snoring; Note: Date Diagnosed: 04/15/2019 4:03 PM (R06.83) Not Available [facility] 4 02:21:46 Obstructi ve sleep apnea syndrome 79127331 Active 2024 SHAR MAY [address] [place] [address], [facility] [place], [address] , [facility] - [facility] 5 14:46:41 Hypertrop hy of tonsils AND adenoids 84045148 Active 2024 SHAR MAY [address] [facility], [place], [place], [address] , [facility] - [facility] 20:27:16 Morbid obesity 969961795 Active 2024 SHAR MAY [address] [facility] [address], [place], [place], [address] , [place] - [facility] [place] 5 20:27:41 Seasonal allergic rhinitis 364763962 [facility] 2024 SHAR MAY [address] [facility] 100, [place], [place], [address] , [facility] - [facility] [place] 20:27:50 Problem Notes None recorded. Medical Equipment None Reported. Allergies No known drug allergies Medications Name Sig Start Date Stop Date Status Note LastModified by Organization Details LastModified Time verapamil ER (SR) 120 mg tablet,ex tended release 01/02 completed Medicati on ID: [id number] D uration Value: 30 Brand Name: verapami [...] mg tablet 01/02 completed Medicati on ID: [id number] B rand Name: chlortha lidone S end Method: E-Prescr ibed Sub s Allowed: subs OK Medic ationGen ericName : chlortha lidone Not Available Not Available Not Available ketorolac 10 mg tablet 01/02 completed Medicati on ID: [id number] B rand Name: ketorola c Send Method: E-Prescr ibed Sub s Allowed: subs OK Medic ationGen ericName : ketorola c Not Available Not Available Not Available verapamil ER 180 mg 24 hr capsule,e xtended release 01/02 completed Medicati on ID: [id number] B rand Name: verapami l Send Method: E-Prescr ibed Sub s Allowed: subs OK Medic ationGen ericName : verapami l Not Available Not Available Not Available amitripty line 25 mg tablet 01/02 completed Medicati on ID: [id number] B rand Name: amitript yline Se nd Method: E-Prescr ibed Sub s Allowed: subs OK Medic ationGen ericName : amitript yline Not Available Not Available Not Available albuterol sulfate HFA 90 mcg/actua tion aerosol inhaler active Medicati on ID: [id number] B rand Name: albutero l sulfate Send [...] mg tablet 01/02 completed Medicati on ID: [id number] D uration Value: 30 Brand Name: naproxen [...] Updated DateTime 01/31/2025 177.8 cm 48.4 kg/m2 840681.63 g MARIO BARRETO [place] - [facility] 01/31/2025 14:52:04 Social History Question Answer Notes LastModified by Organizat ion Details LastModified Time Tobacco Smoking Status Never Smoker Dang schreiber [place] - [facility] 01/02/2025 10:40:42 How Many Years Have You Consumed Alcohol? 10 [email or web address] Information not available 01/02/2025 What Type Of Professor Of Counseling Do You Use? None [email or web address] Information not available 01/02/2025 How Many Alcoholic Drinks Do You Consume Per Day On Average? 0 [email or web address] Information not available 01/02/2025 Do You Have Any Pets? No [email or web address] Information not available 01/02/2025 Are You Passively Exposed To Smoke? No [email or web address] Information not available 01/02/2025 Are There Any Smokers In Your House? No [email or web address] Information not available 01/02/2025 Sex: Unknown Functional Status Question Answer Note LastModified by Organization Details LastModified Time How many times per week do you consume alcohol? 1-2 times per week ccomi Information not available 01/31/2025 Do you use any illicit or recreational drugs? No [email or web address] Information not available 01/02/2025 Do you or have you ever used any other forms of tobacco or nicotine? No [email or web address] Information not available 01/02/2025 What is your level of alcohol consumption? Occasional [email or web address] Information not available 01/02/2025 What type of noise exposure are you exposed to? noExposureToExcessiveNoise [email or web address] Infor mation not available 01/02/2025 Mental Status None recorded. Family History Nothing Reported. Medical History Condition Response Allergies/Hayfever Y Heart Problems N Anxiety N Tonsil Infections N Emphysema N Migraines Y Thyroid Problems N Glaucoma N Depression N COPD N Developmental Delay N Nasal or Sinus Problems N Anemia N Immune System Disorder N Anesthesia Complications N Heart Attack ([place]) N Other Skin Condition N Diabetes N [...] ICD10 Code Diagnosis IMO Codes Diagnosis Note [id number] SHAR MAY [facility] [address] [address] 01/02/2025 09:58:42 01/02/2025 11:19:22 Obstructive sleep apnea syndrome 72305233 G47.33 23910278 Hypertroph y of tonsils AND adenoids 15701276 J35.3 142896 Morbid obesity 973802551 E66.01 76108 Seasonal a llergic rhinitis 074862956 J30.2 9275923 [id number] ORI LAM MD [facility] [address] [address] 01/31/2025 13:57:16 01/31/2025 15:26:36 Obstructive sleep apnea syndrome 82520704 G47.33 00413304 Morbid obesity 205969215 E66.01 07543 Health Concerns Section Related Observation LastModified by Organization Detai ls LastModified Time None Recorded Concern Status LastModified by Organization Details LastModified Time None Recorded Payers Encounter Date Sequence Insurance Name Policy Number Policy Lam Covered Member ID Lam Member ID Guarantor Name 01/31/2025 1 [facility] [facility] [place] [place] [id number] Ilya Recinos [id number] Ilya Recinos Notes Date Note Type Note Provider Name and Address Organization Details Recorded Time 01/31/2025 text/html KAYLA 08/01/24 home PSG [facility] [...] six months ago in July through the [facility] system, which confirmed severe sleep apnea. 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 He also reports frequent choking on saliva, which he attributes to his large tonsils. ORI LAM MD [address] [place] [address], [address], [place] - [facility] 01/31/2025 15:17:58
--- OUTSIDE RECORDS SUMMARY | 2025-03-02 16:24 | XMS_ITS | Patient Health Record ---
Author Organization [employer] Address [address] [facility] [address] [place] [address] Support Name Relationship Address Phone KATYA JUANA Guarantor Unknown [phone] Allergies No Known Allergies Reason For Referral No Information Medications Medication SIG (Take, Route, Frequency, Duration) Notes Start Date End Date Status Verapamil HCl ER 180 MG 1 tablet Orally Once a day Active Chlorthalidone 25 MG 1 tablet in the mor fanny with food Orally Once a day Active SUMAtriptan Succinate 50 MG 1 tablet at least 2 hours between doses as needed Orally Twice a day Active Social History Tobacco Use: Social History Observation Description Date Details (start date - stop date) Never Smoker NA - NA Tobacco Use/Smoking Question Answer Notes Are you a nonsmoker Alcohol Screen (Audit-C) Question Answer Notes Did you have a drink contain ing alcohol in the past year? Yes How often did you have a dri nk containing alcohol in the past year? 2 to 4 times a month (2 points) How many drinks did you have on a typical day when you were drinking in the past year? 1 or 2 drinks (0 point) Points 2 Interpretation Negative Problems Problem Type SNOMED Code ICD Code Onset Dates Problem Status W/U Status Risk Notes Problem Morbid obesity (disorder) (086618967) Morbid (severe) obesity due to excess calories (E66.01) Active confirmed Problem Migraine with aura (8674358) Migraine with aura, not intractable, without status migrainosus (G43.109) Active confirmed Problem Essential hypertension (34980003) Essential (primary) hypertension (I10) Active confirmed Plan Of Treatment No Information Insurance Providers Payer Name Payer Address Payer Phone Subscriber Number Group Number Insured Name Patient Relationship to Insured Coverage Start Date Coverage End Date [facility] [address] [place] [address] [id number] JUANA ALDANA Self - patient is the insured Medical (General) History Medical History History ICD Code Hypertension Migraine headaches Surgical History Surgery Date(Month/Year) left ankle surgery, multiple ligament te ars s/p fall 10/2020 left knee surgery, MCL tear
--- OUTSIDE RECORDS SUMMARY | 2025-03-02 16:24 | XMS_ITS | Clinical Summary ---
Author Organization [facility] Address [address] [place] [phone] Phone Care Team Providers Care Medicaid Eligibility Specialist Name Role Phone Jud Rubin MD Primary Care Provider +1- [phone] Allergies No known active allergies Medications amitriptyline (ELAVIL) 10 MG tablet Take 10 mg by mouth nightly. Active ibuprofen (ADVIL,MOTRIN) 600 MG tablet Take 1 tablet (600 mg total) by mouth every 6 (six) hours as needed for pain (specific location in comments). 30 tablet 8 Active albuterol (ACCUNEB) 1.25 mg/3 mL nebulizer solution Take 1 ampule by nebulization every 6 (six) hours as needed for wheezing. Active verapamil (CALAN) 40 MG immediate release tabletIndicatio ns:150mg Take by mouth 3 (three) times a day. Indications: 150mg Active chlorthalidone (HYGROTON) 50 MG tablet Take 50 mg by mouth daily. Active Active Problems Problem Noted Date Diagnosed Date HTN (hypertension) 03/06/2018 Social History Tobacco Use Types Packs/Day Years Used Date Smoking Tobacco: Never Smokeless Tobacco: Never Alcohol Use Standard Drinks/Week Comments Yes 0 (1 standard drink = 0.6 oz pur e alcohol) occasion Education Answer Date Recorded Are you interested in more education? Not on gali e 08/22/2022 Are you concerned about learning? Not on file 08/22/2022 No 08/22/2022 No 08/22/2022 Digital Access Answer Date Recorded No 09/23/2022 No 09/23/2022 Reliable internet access at home? Not on file 09/23/2022 Device with a working camera? Not on file Intimate Partner Violence Answer Date R ecorded Are you denied basic needs s uch as food, clothing, or medical care? No 12/21/2023 In the past 12 months have y ou been in a relationship with a person who hurts, threatens, or tries to control you? No 12/21/2023 Are you denied basic needs s uch as food, clothing, or medical care? No 12/21/2023 In the past 12 months have y ou been in a relationship with a person who hurts, threatens, or tries to control you? No 12/21/2023 Sex and Gender Information Value Date Recorded Sex Assigned at Male 03/06/2018 9:57 PM EST Legal Sex Male 9:37 PM EST Gender Identity Male 03/06/2018 9:57 PM EST Sexual Orientation Straight 03/06/2018 9: 57 PM EST Last Filed Vital Signs Vital Sign Reading Time Taken Comments Blood Pressure 141/93 12/21/2023 6:36 PM EDT Pulse 92 12/21/2023 6:36 PM EDT Temperature 36 C (96.8 F) 12/21/2023 6:36 PM EDT Respiratory Rate 20 12/21/2023 6:36 PM EDT Oxygen Saturation 96% 12/21/2023 6:36 PM EDT Inhaled Oxygen Concentration - - Weight 147.4 kg (325 lb) 12/21/2023 6:36 PM EDT Height 177.8 cm (5' 10 ) 12/21/2023 6:36 PM EDT Body Mass Index 46.63 12/21/2023 6:36 PM EDT Plan of Treatment Health Maintenance Due Date Last Done Comments BLOOD PRESSURE 1993 DEPRESSION SCREENING 2005 HEPATITIS C SCREENING 2011 HIV ONE-TIME SCREENING (18-65 YEARS) 2011 INFLUENZA VACCINE (#1) 2024 9, 02/25/2018, 03/17/2016, Additional history exists POTASSIUM LEVEL 12/20/2024 12/21/2023, 03/22/2019 COVID-19 VACCINE ( season) 2024 Adult Td,Tdap Booster 04/15/2027 04/15/2017, 09/24/2 014 MENINGOCOCCAL VACCINES (ACWY) Aged Out 09/03/2012 No longer eligible based on patient's age to complete this topic SMOKING STATUS SCREENING (Once After 26 Yrs) Completed 12/21/2023 HEPATITIS A VACCINES Aged Out No long er eligible based on patient's age to complete this topic HIB VACCINES Aged Out No longer eligi ble based on patient's age to complete this topic MENINGOCOCCAL VACCINES (B) Aged Out N o longer eligible based on patient's age to complete this topic PNEUMOCOCCAL VACCINES (0-49 years) Aged Out No longer eligible based on patient's age to complete this topic Medical Devices Not on file Procedures Procedure Name Priority Date/Time Associated Diagnosis Comments BASIC METABOLIC PANEL (BMP) STAT 12/21/2023 7:22 PM EDT from Last 3 Months or Most Recently Relevant to Health Maintenance Results * (ABNORMAL) Basic metabolic panel (12/21/2023 7:22 PM EDT) SODIUM 139 133 - 146 mmol/L [facility] CHLORIDE 100 96 - 108 mmol/L [facility] POTASSIUM 4.1 3.3 - 5.1 mmol/L [facility] CO2 24 21 - 35 mmol/L [facility] BUN 12 6 - 19 mg/dL [facility] CREATININE 0.80 0.5 - 1.5 mg/dL [facility] GLUCOSE 109(H) 70 - 99 mg/dL [facility] CALCIUM 9.5 8.4 - 10.3 mg/dL [facility] EGFR >120 >59 mL/min/1.7 3m2 [facility] Comment:Estimated glomerular filtration rate calculated using the CKD-EPI refit equation. ANION GAP 19 10 - 20 mmol/L [facility] Blood 12/21/2023 7:2 2 PM EDT 12/21/2023 7:31 PM EDT Juan Manuel Baxter DO LAB BLOOD BKR ORDERABL ES Final Result [facility] [address] [place] [address] from Last 3 Months or Most Recently Relevant to Health Maintenance [place] [address] [place] [address] [place] [address] [place] [address] Care Teams Medicaid Eligibility Specialist Relationship Specialty Start Date End Date Jud Rubin MD [address] [place] [id number] PCP - General Internal Medicine 03/22/19 Additional Source Comments The information contained in this document represents components of the legal health record. It is not the complete legal health record.[facility]
== END 2025-03-02 13:28 | disposition home or self-care (01) ==
LOC: HO.MRI 13:27
PROVIDERS: Visit Provider Emergency Medicine
DX: S89.81XD Other specified injuries of right lower leg, subsequent encounter (principal)
CPT/HCPCS: 73721

== ENCOUNTER → 2025-03-02 13:29 | Outpatient (BNV) | payer OTHER, SELFPAY | PROVIDERS: Visit Provider Radiology Diagnostic Ultrasound | DX: S80.911A Unspecified superficial injury of right knee, initial encounter (principal) | CPT/HCPCS: 73721 ==

== ENCOUNTER 2025-03-29 08:33 | Outpatient (AMB) | payer OTHER, SELFPAY ==
--- NOTE | 2025-03-29 08:38 | MHC.OFFVIS ---
Vital Signs 03/29/25 08:42 Height 5 ft 10 in Weight 340 lb BMI 48.8 Intake Visit Reasons: WC DOI 11/03/24 RT Knee injury Intake Note: Ilya is a 30 year old male who presents today as a new patient for a workers comp evaluation of an injury to his right knee, DOI 11/03/24. Patient referred by work connection. Patient reports his knee pain has been limiting him from working, as he is constantly on his feet at work. He has been using Ibuprofen 800mg, icing and elevating. Fitter Mechanic Required: No Allergies No Known Allergies Allergy (Verified 03/29/25 08:43) HPI HPI WC DOI 11/03/24 RT Knee injury: Details: 30 yo male presents to the office today for an injury he sustained to his right knee on 11/03/24. He states he was removing a pump and he went to step down and he hyperextend the right knee. She was seen at work connection. He was icing and using Ibuprofen and it was feeling ok. He returned to work but as he continued to work he felt pain and sensation of instability. He feels discomfort with planting the foot and twisting otherwise his knee will give out. 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 He is currently working without restrictions. He has a h/o left knee arthroscopy. [facility] Medical History Asthma Hypertension Migraine Surgical History H/O arthroscopy of left knee Social History Alcohol intake: never Patient Tobacco Use Status: Never used Tobacco Current occupational status: employed 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 Review of Systems Const All systems reviewed & are unremarkable except as noted in HPI and below Physical Exam Vital Signs: BMI result Body Mass Index 48.8 Const General: cooperative and no acute distress Orientation/consciousness: patient oriented x3 Resp Effort & Inspection: normal respiratory effort and able to speak in complete sentences Cardio Peripheral pulses: Peripheral pulses 2+ throughout Neuro General: patient oriented x3 Extrem Other: Right knee is normal to inspection. No joint effusion. He has full range of motion. He has medial joint line tenderness with a positive Camryn's. No ligamentous laxity. Calf is supple and nontender neurovascularly intact. Results Reviewed Results Reviewed: MR knee RT wo con IMPRESSION: * 1.5 cm cystic focus anterior to/abutting the medial meniscal anterior root/anterior horn. This of uncertain etiology. Differential consideration include para -meniscal cyst, possible underlying occult meniscal tear, ganglion cyst. Follow-up imaging as clinically indicated.. * Mild T2 signal in the posterior fibers ACL could reflect physiological variation versus mild sprain. No ACL discontinuity is otherwise seen. * Additional findings as above. Assessment & Plan Assessment & Plan (1) Internal derangement of right knee: Code(s): M23.91 - Unspecified internal derangement of right knee Category: Medical (2) Acute meniscal tear of right knee: Code(s): S83.206A - Unspecified tear of unspecified meniscus, current injury, right knee, initial encounter Category: Medical Plan The patient does have some meniscus pathology on the right knee which does continue to limit his ability to perform activities. I will review the MRI with Dr Alcocer and contact the patient to determine the next step. Coding Level of Care Code Est Pt Level 3 (84219) Add On Problem Visit Only Diagnoses Internal derangement of right knee M23.91 Acute meniscal tear of right knee S83.206A
[2025-03-29 08:42] VITALS: BMI 48.8
--- OUTSIDE RECORDS SUMMARY | 2025-03-29 08:44 | XMS_ITS | Clinical Summary ---
Author Organization [address] [facility] Address [address] [place] [address] Phone Care Team Providers Care Kids Activities Coach Name Role Phone Tiffanie Anguiano [facility] Primary Care Provider Allergies No known active allergies Medications verapamil ER (VERELAN) 240 mg 24 hr capsule Take 1 capsule (240 mg total) by mouth 1 (one) time each day. Active losartan (COZAAR) 50 mg tablet Take 1 tablet (50 mg total) by mouth. 07/21/2024 Active loratadine (CLARITIN) 10 mg tablet Take 1 tablet (10 mg total) by mouth. 08/15/2024 Active chlorthalidone (HYGROTON) 25 mg tablet Take 1 tablet (25 mg total) by mouth 1 (one) time each day. 03/21/2024 Active Social History Tobacco Use Types Packs/Day Years Used Date Smoking Tobacco: Never Assessed Sex and Gender Information Value Date Recorded Sex Assigned at Not on file Legal Sex Male 2:56 PM EST Gender Identity Not on file Sexual Orientation Not on file Last Filed Vital Signs Vital Sign Reading Time Taken Comments Blood Pressure - - Pulse - - Temperature - - Respiratory Rate - - Oxygen Saturation - - Inhaled Oxygen Concentration - - Weight 152 kg (335 lb) 06/13/2024 12:58 PM EST Height 180.3 cm (5' 10.98 ) 06/13/2024 12:58 PM EST Body Mass Index 46.74 06/13/2024 12:58 PM EST Plan of Treatment Health Maintenance Due Date Last Done Comments Hepatitis B Vaccines (1 of 3 - 19+ 3-dose series) 2012 11/04/2017, 06/08/2017, 05/08/2017 Pneumococcal Vaccine: Pediatrics (0 to 5 Years) and At-Risk Patients (6 to 49 Years) (1 of 2 - PCV) 2012 Cholesterol Screening (Lipid Panel) 05/26/2023 HIV Screening 05/26/2023 Hepatitis C Screening 05/26/2023 Social Influencers of Health Screening 05/26/2023 Depression Screening 04/27/2024 Hypertension/CHF/CAD Annual BMP Blood Test 05/16/2024 COVID-19 Vaccine (3 - season) 2024 08/28/2020, 07/31/2020 Influenza Vaccine (#1) 2024 , 03/12/2023, 2019, Additional history exists DTaP,Tdap,and Td Vaccines (4 - Td or Tdap) 11/11/2032 11/11/2022, 04/15/2017, 01/18/2014 RSV Immunization Adult Patients (1 - 1-dose 75+ series) 2068 MMR Vaccines Completed 08/04/2011, 07/03/2011 Meningococcal ACWY Vaccine Aged Out 09/03/2012 N o longer eligible based on patient's age to complete this topic HPV Vaccines Completed 03/08/2018, 05/29, 09/03/2012 HIB Vaccines Aged Out No longer eligi ble based on patient's age to complete this topic Hepatitis A Vaccines Aged Out No long er eligible based on patient's age to complete this topic IPV Vaccines Aged Out No longer eligi ble based on patient's age to complete this topic Meningococcal B Vaccine Aged Out No l onger eligible based on patient's age to complete this topic RSV Immunization Patients Under 20 months Aged Out No longer eligible based on patient's age to complete this topic Varicella Vaccines Aged Out No longer eligible based on patient's age to complete this topic Insurance [facility] Care Teams Kids Activities Coach Relationship Specialty Start Date End Date Tiffanie Anguiano FNP [address] [facility] [place] [address] PCP - General Family Medicine 03/11/24
--- OUTSIDE RECORDS SUMMARY | 2025-03-29 08:44 | XMS_ITS | Clinical Summary ---
Author Organization [facility] Address [address] [place] [phone] Phone Care Team Providers Care Digital Asset Specialist Name Role Phone Jud Rubin MD Primary Care Provider +1- [phone] Allergies No known active allergies Medications amitriptyline [...] EDT) SODIUM 139 133 - 146 mmol/L [facility] CHLORIDE 100 96 - 108 mmol/L [facility] POTASSIUM 4.1 3.3 - 5.1 mmol/L [facility] CO2 24 21 - 35 mmol/L [facility] BUN 12 6 - 19 mg/dL [facility] CREATININE 0.80 0.5 - 1.5 mg/dL [facility] GLUCOSE 109(H) 70 - 99 mg/dL [facility] CALCIUM 9.5 8.4 - 10.3 mg/dL [facility] EGFR >120 >59 mL/min/1.7 3m2 [facility] Comment:Estimated glomerular filtration rate calculated using the CKD-EPI refit equation. ANION GAP 19 10 - 20 mmol/L [facility] Blood 12/21/2023 7:2 2 PM EDT 12/21/2023 7:31 PM EDT Juan Manuel Baxter DO LAB BLOOD BKR ORDERABL ES Final Result [facility] [address] [place] [address] from Last 3 Months or Most Recently Relevant to Health Maintenance [place] [address] [place] [address] [place] [address] [place] [address] Care Teams Digital Asset Specialist Relationship Specialty Start Date End Date Jud Rubin MD [address] [place] [id number] PCP - General Internal Medicine 03/22/19 Additional Source Comments The information contained in this document represents components of the legal health record. It is not the complete legal health record.[facility]
== END 2025-03-29 09:42 | disposition home or self-care (01) ==
LOC: HO.HOS 08:34
PROVIDERS: Visit Provider Physician Assistant
DX: M23.91 Unspecified internal derangement of right knee (principal); S83.206A Unspecified tear of unspecified meniscus, current injury, right knee, initial encounter
CPT/HCPCS: 99213; G2211

== ENCOUNTER → 2025-03-29 08:33 | Outpatient (BNVA) | payer OTHER, SELFPAY | PROVIDERS: Visit Provider Physician Assistant | DX: S83.206D Unspecified tear of unspecified meniscus, current injury, right knee, subsequent encounter (principal); M23.91 Unspecified internal derangement of right knee; X50.9XXD Other and unspecified overexertion or strenuous movements or postures, subsequent encounter | CPT/HCPCS: 99212 ==

== ENCOUNTER 2025-04-24 09:16 | Outpatient (AMB) | payer OTHER, SELFPAY ==
[2025-04-24 09:28] VITALS: BMI 48.8
--- NOTE | 2025-04-24 09:28 | MHC.OFFVIS ---
Vital Signs 04/24/25 09:28 Height 5 ft 10 in Weight 340 lb BMI 48.8 Intake Visit Reasons: Inj- right knee injection Intake Note: Ilya is a 30 year old male who presents today for a right knee injection. Allergies No Known Allergies Allergy (Verified 04/24/25 09:28) Medication List - Last Reconciled 04/24/25 by Jesse Crespo PA-C amitriptyline 50 mg PO BEDTIME chlorthalidone 25 mg PO DAILY Decadron (dexamethasone) 12 mg (2 x 6 mg) PO ONCE NS ibuprofen 800 mg PO TID PRN verapamil ER 180 mg PO DAILY HPI HPI Inj- right knee injection: Details: 30-year-old gentleman returns to the office today for right knee pain. He has begun physical therapy last week and states it is going well. He presents today for right knee injection which was previously delayed due to an upcoming procedure. 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 No joint effusion. He has full range of motion. He has medial joint line tenderness with a positive Camryn's. No ligamentous laxity. Calf is supple and nontender neurovascularly intact. Office Procedures AMB Joint Injection/Aspiration Joint Injection/Aspiration Primary Site: Right Knee Prep: site was prepped using aseptic technique, ethochloride spray was applied and injection warnings given Injected: 40 mg of, Decadron, with 3 mL of, 1% plain Lidocaine, 0.25% Bupivacaine and in the joint Approach Used: anterolateral Procedure: The patient tolerated the procedure well and there was some relief with the local anesthesia Coding 02108 - Glenohumeral/Tronchanteric Bursa/Intraarticular Procedure code (CPT) selection complete Assessment & Plan Assessment & Plan (1) Acute meniscal tear of right knee: Code(s): S83.206A - Unspecified tear of unspecified meniscus, current injury, right knee, initial encounter Category: Medical (2) Patellofemoral disorders, right knee: Code(s): M22.2X1 - Patellofemoral disorders, right knee Category: Medical Plan We discussed options today, which include steroid injection. The patient did consent to move forward with the injection, which was tolerated well.? I recommended rest, ice and elevation and OTC antiinflammatories prn for discomfort. If symptoms persist over the next 6-8 weeks, they will contact our office, otherwise, prn Coding Level of Care Code Est Pt Level 3 (78000) Add On Problem Visit Only Diagnoses Acute meniscal tear of right knee S83.206A Patellofemoral disorders, right knee M22.2X1 CPT Codes Coding - Joint 7: 20565 - Glenohumeral/Tronchanteric Bursa/Intraarticular ([id number])
--- OUTSIDE RECORDS SUMMARY | 2025-04-24 09:35 | XMS_ITS | Patient Health Record ---
Author Organization [employer] Address [address] [place] [address] Support Name Relationship Address Phone KATYA JUANA Guarantor Unknown [phone] Allergies No Known Allergies Reason For Referral [...] Status Risk Notes Problem Morbid obesity (disorder) (711487677) Morbid (severe) obesity due to excess calories (E66.01) Active confirmed Problem Migraine with aura (5699177) Migraine with aura, not intractable, without status migrainosus (G43.109) Active confirmed Problem Essential hypertension (03449797) Essential (primary) hypertension (I10) Active confirmed Plan Of Treatment No Information Insurance Providers Payer Name Payer Address Payer Phone Subscriber Number Group Number Insured Name Patient Relationship to Insured Coverage Start Date Coverage End Date [facility] [id number] [place] [address] [id number] JUANA ALDANA Self - patient is the insured Medical (General) History Medical History History ICD Code Hypertension Migraine headaches Surgical History Surgery Date(Month/Year) left ankle surgery, multiple ligament te ars s/p fall 10/2020 left knee surgery, MCL tear
--- OUTSIDE RECORDS SUMMARY | 2025-04-24 09:35 | XMS_ITS | Clinical Summary ---
Author Organization [address] [facility] Address [address] [place] [address] Phone Care Team Providers Care Deckhand Oyster Dredge Name Role Phone Tiffanie Anguiano [facility] Primary Care Provider Allergies No known active [...] patient's age to complete this topic Insurance [facility] Care Teams Deckhand Oyster Dredge Relationship Specialty Start Date End Date Tiffanie Anguiano FNP [address] [facility] [place] [address] PCP - General Family Medicine 03/11/24
--- OUTSIDE RECORDS SUMMARY | 2025-04-24 09:35 | XMS_ITS | Clinical Summary ---
Author Organization [facility] Address [address] [place] [address] Phone Care Team Providers Care Sales Assistant Name Role Phone Jud Rubin MD Primary Care Provider +1- [phone] Allergies No known active allergies Medications amitriptyline [...] EDT) SODIUM 139 133 - 146 mmol/L [facility] CHLORIDE 100 96 - 108 mmol/L [facility] POTASSIUM 4.1 3.3 - 5.1 mmol/L [facility] CO2 24 21 - 35 mmol/L [facility] BUN 12 6 - 19 mg/dL [facility] CREATININE 0.80 0.5 - 1.5 mg/dL [facility] GLUCOSE 109(H) 70 - 99 mg/dL [facility] CALCIUM 9.5 8.4 - 10.3 mg/dL [facility] EGFR >120 >59 mL/min/1.7 3m2 [facility] Comment:Estimated glomerular filtration rate calculated using the CKD-EPI refit equation. ANION GAP 19 10 - 20 mmol/L [facility] Blood 12/21/2023 7:22 PM EDT 12/21/2023 7:31 PM EDT us Juan Manuel Baxter DO LAB BLOOD BKR ORDERABL ES Final Result [facility] [address] [place] [address] from Last 3 Months or Most Recently Relevant to Health Maintenance [place] [address] [place] [address] [place] [address] [place] [address] Care Teams Sales Assistant Relationship Specialty Start Date End Date Jud Rubin MD [address] [place] [phone] PCP - General Internal Medicine 03/22/19 Additional Source Comments The information contained in this document represents components of the legal health record. It is not the complete legal health record.[facility]
== END 2025-04-24 10:30 | disposition home or self-care (01) ==
LOC: HO.HOS 09:17
PROVIDERS: PCP Student in an Organized Health Care Education/Training Program; Visit Provider Physician Assistant
DX: S83.206A Unspecified tear of unspecified meniscus, current injury, right knee, initial encounter (principal); M22.2X1 Patellofemoral disorders, right knee
CPT/HCPCS: 20610

== ENCOUNTER → 2025-04-24 09:16 | Outpatient (BNVA) | payer OTHER, BC, SELFPAY | PROVIDERS: PCP Student in an Organized Health Care Education/Training Program; Visit Provider Physician Assistant | DX: M22.2X1 Patellofemoral disorders, right knee (principal); S83.206A Unspecified tear of unspecified meniscus, current injury, right knee, initial encounter | CPT/HCPCS: 20610; J0665; J1100; J2003 ==